=== PATIENT | female | born 2005 | race Two or more races ===

== ENCOUNTER 2024-08-20 12:58 | Emergency (ER) | payer SELFPAY ==
[~2024-08-20] VITALS: Ht 160 cm; Wt 75.0 kg
[2024-08-20 13:08] VITALS: O2SAT 98
[2024-08-20 14:30] LABS: CLARITY URINE TURBID (CLEAR); COLOR URINE ORANGE (YELLOW); GLUCOSE URINE NEGATIVE (NEGATIVE); KETONES URINE NEGATIVE (NEGATIVE); LEUKOCYTE ESTERASE URINE 3+ (NEGATIVE); NITRITE URINE POSITIVE (NEGATIVE); OCCULT BLOOD URINE 1+ (NEGATIVE); PH URINE 5.5 (4.5-8.0); PROTEIN URINE 1+ (NEGATIVE)
[2024-08-20 15:07] LABS: SQUAMOUS EPITHELIAL CELL URINE 1+ /lpf (RARE/1+)
[2024-08-20 15:08] LABS: BACTERIA URINE 2+; WBC URINE TNTC /hpf (0-2)
[2024-08-20 15:10] LABS: RBC URINE 0-2 /hpf (0-2)
[2024-08-20] MEDS ORDERED: CEFP200T13 MT (16:23)
[2024-08-20 16:42] VITALS: BP 122/89; PULSE 76; RESP 18; TEMP 37.1; O2SAT 100
== END 2024-08-20 16:43 | disposition home or self-care (01) ==
LOC: ER 12:58
DX: N39.0 Urinary tract infection, site not specified (principal)
CPT/HCPCS: 81003; 81025; 87077; 87186; 99283